=== PATIENT | male | born 1965 | race Caucasian/White ===

== ENCOUNTER 2019-01-24 13:47 | Outpatient (CLI) | payer OTHER ==
--- NOTE | 2019-01-24 19:00 | Consultation ---
DATE OF CONSULTATION: 01/24/2019 CONSULTING PHYSICIAN: Gilbert Cuevas M.D. CHIEF COMPLAINT: Rectal mass. for evaluation of rectal mass. Need for endoscopic ultrasound. PAST MEDICAL HISTORY: Rectal mass. ALLERGIES: No known drug allergies. MEDICATIONS: Please see medication reconciliation list. FAMILY HISTORY: Noncontributory. SOCIAL HISTORY: The patient denies any tobacco usage. He used to smoke, but he has stopped smoking. Alcohol, he is a social drinker. REVIEW OF SYSTEMS: A 10-point review of systems was performed and positive for heartburns, rectal bleeding, and left lower quadrant abdominal pain. PHYSICAL EXAMINATION: GENERAL: This is a well-developed male, in no acute distress. HEENT: Normocephalic and atraumatic. Sclerae anicteric. NECK: Supple. No evidence of obvious lymphadenopathy. CARDIOVASCULAR: Regular rate and rhythm. Plus S1 and S2. No obvious murmur. LUNGS: Clear to auscultation bilaterally. ABDOMEN: Positive bowel sounds. Soft and nontender. No rebound. No guarding. No peritoneal sign. EXTREMITIES: No cyanosis. No clubbing. No edema. ASSESSMENT AND PLAN: This is a 53-year-old with rectal mass, needs endoscopic ultrasound for staging. The patient was given prep. We want similar authorization for rectal ultrasound and scheduling when authorization is obtained. Gilbert Cuevas M.D. DR: RENETTA JOB#: [id number] CC:
== END 2019-01-24 16:02 | disposition home or self-care (01) ==
LOC: PAN 13:47
DX: K62.9 Disease of anus and rectum, unspecified (principal); Z87.891 Personal history of nicotine dependence

== ENCOUNTER 2019-03-18 08:01 | Day surgery (SDC) | payer MEDICAID, OTHER ==
[~2019-03-18] VITALS: Ht 182.9 cm; Wt 83.9 kg
[2019-03-18] VITALS (8 sets, daily range): BP systolic 109–124; BP diastolic 64–76
--- NOTE | 2019-03-18 07:47 | Anethesia Preoperative Eval ---
Anesthesia Pre-op PMH/ROS General Date of Evaluation: Mar 18, 2019 Time of Evaluation: 07:44 Anesthesiologist: bruce ASA Score: ASA 3 Mallampati Score Class I : Soft palate, uvula, fauces, pillars visible Class II: Soft palate, uvula, fauces visible Class III: Soft palate, base of uvula visible Class IV: Only hard plate visible Mallampati Classification: Class II Surgeon: ecsar Diagnosis: rectal mass Surgical Procedure: sigmoidoscopy w/ rectal eus Anesthesia History: none Social History: current smoker, drug use Family History: no anesthesia problems Allergies: Coded Allergies: No Known Allergies (Unverified , 03/18/19) Medications: see eMAR Patient NPO?: Yes Past Medical History Cardiovascular: Reports: other - hypercholesterolemia Gastrointestinal/Genitourinary: Reports: other - rectal mass, colorectal cancer , hemorrhoids, colonoscopy Neurologic/Psychiatric: Reports: depression/anxiety Anesthesia Pre-op Phys. Exam Physician Exam Last Vital Signs Date Time Temp Pulse Resp B/P (MAP) Pulse Ox O2 Delivery O2 Flow Rate FiO2 03/18/19 08:28 Room Air 03/18/19 08:22 98.1 59 18 122/76 96 Constitutional: NAD Neurologic: CN 2-12 intact Cardiovascular: RRR Respiratory: CTA Airway Exam Mallampati Score: Class II MO: limited Neck: flexible TMD: 2fb ROM: limited Anesthesia Pre-op A/P Risk Assessment & Plan Assessment: asa3 Plan: mac Status Change Before Surgery: No Pre-Antibiotics Drug: Barb Franklin MD Mar 18, 2019 07:47
[~2019-03-18 08:01] MED LIST: ACETAMINOPHEN325 M1 ORAL; ATORVASTATIN CA20 MG ORAL; Atropine Inj 1mg/10ml Syr IV PRN; DiphenhydrAMINE 50mg/ml Inj IVP PRN; FIBER500 MG PO; LR 1000ml 1,000 ML IVLG SCH; MULTIVITAMINS1 EAC2 ORAL; Midazolam 2mg/2ml Inj IVP PRN; fentaNYL 100 mcg/2 mL IV PRN
[2019-03-18] MEDS ORDERED: LR 1000ml ONE (09:00)
[2019-03-18] MEDS ORDERED: Propofol 200mg/20ml IV ONE (09:00)
[2019-03-18] MEDS ORDERED: Lidocaine 1% MPF 10mg/ml 5ml ONE (09:00)
--- NOTE | 2019-03-18 09:31 | Pre-Procedure Note/Attestation ---
Pre-Procedure Note/Attestation Complete Prior to Procedure Planned Procedure: not applicable Procedure Narrative: flex sig, EUS Indications for Procedure Pre-Operative Diagnosis: rectal mass Attestation I attest that I discussed the nature of the procedure; its benefits; risks and complications; and alternatives (and the risks and benefits of such alternatives ), prior to the procedure, with the patient (or the patient's legal account retention representative). I attest that, if there was a reasonable possibility of needing a blood transfusion, the patient (or the patient's legal account retention representative) was given the [facility] standardized written summary, pursuant to the [place] Blood Safety Act ([place] Health and Safety Code # 1645, as amended). I attest that I re-evaluated the patient just prior to the surgery and that there has been no change in the patient's H&P, except as documented below: Gilbert Cuevas MD Mar 18, 2019 09:31
--- NOTE | 2019-03-18 09:31 | Short Stay Surgery H&P ---
History of Present Illness History of Present Illness Chief Complaint see recent office note HPI Vernon Pulliam is a 54 year old male who was admitted on for Rectal Mass Patient History Allergies: Coded Allergies: No Known Allergies (Unverified , 03/18/19) Medication History Scheduled Atorvastatin Calcium* (Atorvastatin Calcium*), 20 MG ORAL BEDTIME, (Reported) Methylcellulose (Fiber), Unknown Dose PO DAILY, (Reported) Multivitamins* (Multivitamins*), 1 TAB ORAL DAILY, (Reported) Scheduled PRN Acetaminophen* (Acetaminophen 325MG Tablet*), 325 MG ORAL Q6H PRN for Pain Scale (3-5), (Reported) Physical Exam Vital Signs Last Vital Signs Date Time Temp Pulse Resp B/P (MAP) Pulse Ox O2 Delivery O2 Flow Rate FiO2 03/18/19 08:28 Room Air 03/18/19 08:22 98.1 59 18 122/76 96 Plan Attestation Are the patient's medical conditions optimized for surgery? Gilbert Cuevas MD Mar 18, 2019 09:31
--- NOTE | 2019-03-18 10:03 | Endoscopy Procedure Note ---
Endoscopy Procedure Note General Indication for Procedure: rectal mass Procedures Performed: flexible sigmoidoscopy, other - EUS Operative Findings/Diagnosis: same Specimen: yes Pt Tolerated Procedure Well: Yes Estimated Blood Loss: none Anesthesia Anesthesiologist: chan Anesthesia: MAC Inserted Devices Implant(s) used?: No GI Core Measures 50 yrs or older w/o bx or poly: Not Applicable 10yrs. F/U recommended: Not Applicable Gilbert Cuevas MD Mar 18, 2019 10:02
--- NOTE | 2019-03-18 10:11 | Immediate Post-Op Evaluation ---
Immediate Post-Op Evalulation Immediate Post-Op Evalulation Procedure: sigmoidoscopy w/ rectal eus w/bx Date of Evaluation: Mar 18, 2019 Time of Evaluation: 10:11 IV Fluids: 250ml lr Blood Products: none Estimated Blood Loss: negligible Blood Pressure Systolic: 106 Blood Pressure Diastolic: 63 Pulse Rate: 56 Respiratory Rate: 18 O2 Sat by Pulse Oximetry: 100 Temperature (Fahrenheit): 97.8 Pain Score (1-10): 0 Nausea: No Vomiting: No Complications none Patient Status: awake, reacts, patent Hydration Status: adequate Drug: Barb Franklin MD Mar 18, 2019 10:11
--- NOTE | 2019-03-18 10:56 | 48 Hour Post Anesthesia Eval ---
Post Anesthesia Evaluation Procedure: sigmoidoscopy w/ rectal eus w/bx Date of Evaluation: Mar 18, 2019 Time of Evaluation: 10:13 Blood Pressure Systolic: 109 0: 65 Pulse Rate: 55 Respiratory Rate: 18 Temperature (Fahrenheit): 97.8 O2 Sat by Pulse Oximetry: 100 Airway: patent Nausea: No Vomiting: No Pain Intensity: 0 Hydration Status: adequate Cardiopulmonary Status: stable Mental Status/LOC: patient returned to baseline Post-Anesthesia Complications: none Follow-up care needed: N/A Barb Mcneil MD Mar 18, 2019 10:56
--- NOTE | 2019-03-18 20:30 | Procedure Note ---
DATE OF PROCEDURE: 03/18/2019 SURGEON: Gilbert Cuevas M.D. PROCEDURE: Flexible sigmoidoscopy with biopsy and endoscopic ultrasound. ANESTHESIA: Per Dr. Riggins. INSTRUMENT: Olympus adult flexible upper endoscope and EUS scope. INDICATION: Rectal mass. REASON FOR PROCEDURE: The procedure, risks, benefits, and possible consequences, including hemorrhage, aspiration, perforation and infection, and alternative treatments, were explained to the patient/legal guardian by Dr. Gilbert Cuevas and the patient/legal guardian understood and accepted these risks. DESCRIPTION OF PROCEDURE: After informed consent was obtained and the patient was adequately sedated, first upper endoscope was advanced from rectum into the sigmoid colon. The patient had a polyp in the rectum measured roughly about 4 mm, removed cold biopsy forceps technique. The patient had a large mass in the rectum starting about 12 centimeter from the anal verge up to about 17 to about 5 centimeter tumor. At this time, the upper endoscope was removed and the EUS scope was introduced. 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 The patient tolerated procedure very well without complication. SUMMARY OF FINDINGS: 1. Rectal polyp removed, see above for details. 2. Large rectal mass from 12 to 17 with T3 N0 finding on endoscopic ultrasound. RECOMMENDATION: 1. The patient to follow with oncologist, most probably will benefit from chemoradiation prior to surgery. 2. Follow up pathology and treat accordingly. Gilbert Cuevas M.D. DR: Don JOB#: [id number] CC:
== END 2019-03-18 11:00 | disposition home or self-care (01) ==
LOC: GAS 08:01
DX: K62.9 Disease of anus and rectum, unspecified (principal); K63.5 Polyp of colon; Z79.899 Other long term (current) drug therapy; F17.200 Nicotine dependence, unspecified, uncomplicated; E78.00 Pure hypercholesterolemia, unspecified; Z85.038 Personal history of other malignant neoplasm of large intestine; F32.9 Major depressive disorder, single episode, unspecified; F41.9 Anxiety disorder, unspecified; D12.7 Benign neoplasm of rectosigmoid junction
CPT/HCPCS: 45331; 45341; 93005; J2704; J7120; Z7512; 94003; 94150